=== PATIENT | female | born 1940 | race Caucasian/White ===

== ENCOUNTER → 2019-02-16 07:59 | Outpatient (CLI) | payer MEDICARE, SELFPAY ==
--- NOTE | 2019-02-16 | DI.MRI.S_ITS ---
PROCEDURE: MR HIP LT WO CON INDICATIONS: L HIP PAIN TECHNIQUE: Noncontrast coronal T1 spin echo and STIR through the bony pelvis. Coronal and axial T2 fast spin echo with fat saturation, sagittal T1 spin echo, and oblique axial T2 fast spin echo with fat saturation through the hip. COMPARISON: None. FINDINGS: Image quality: Excellent. Bones and joints: There is no marrow edema. Symmetric appearing mild to moderate bilateral hip joint osteoarthritic changes are seen with joint space narrowing, subchondral sclerosis. No marrow edema. No fracture or dislocation. No intraosseous lesions or fractures. No avascular necrosis of the femoral heads. 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 Tendons and ligaments: There is a moderate to high-grade partial-thickness tear involving left gluteus medius and minimus tendons at their insertions on the greater trochanter extending to musculotendinous junction. No muscle atrophy. The nearby proximal iliotibial band appears intact. The iliopsoas tendon appears intact, without adjacent bursal fluid collections or evidence for impingement syndrome. The origin of the hamstring tendon is intact at the ischial tuberosity, as well as the associated sacrotuberous ligament. The straight and reflected heads of the rectus femoris muscle origin appear intact, as well as the conjoint tendon. The ligamentum teres appears intact where visualized. Labrum and cartilage: The acetabular labrum appears intact in the absence of intra-articular contrast. The alpha angle of the femur is within normal limits at less than 55 degrees. Soft tissues: Visualized muscles demonstrate normal bulk and internal signal. Quadratus femoris muscle demonstrates no internal edema to suggest ischiofemoral impingement. The proximal sciatic neurovascular bundle appears normal adjacent to the hamstring tendons. No free pelvic fluid. Bladder wall thickness is normal. Genitourinary structures and bowel loops appear normal where visualized. IMPRESSION: #1. Tendinosis and the moderate grade partial-thickness tear involving left gluteus medius and minimus at their insertion on greater trochanter extending to musculotendinous junction. No full-thickness muscle or tendon rupture. #2. Mild to moderate bilateral hip joint osteoarthritis. No fracture or dislocation. No evidence of avascular necrosis. #3. No gross focal labral tear in the absence of intra-articular contrast. Dictated by: Italo Peace M.D. on 02/16/2019 at 7:51 Approved by: Italo Peace M.D. on 02/16/2019 at 8:09
== END ==
PROVIDERS: PCP Family Medicine; Visit Provider Family Medicine
DX: M25.552 Pain in left hip (principal); S76.012A Strain of muscle, fascia and tendon of left hip, initial encounter; M16.0 Bilateral primary osteoarthritis of hip
CPT/HCPCS: 73721